=== PATIENT | male | born 1940 | race Caucasian/White ===

== ENCOUNTER 2018-04-04 08:26 | Day surgery (SDC) | payer MEDICARE ==
[~2018-04-04 08:26] MED LIST: ACET325 PO; ASPI81CH PO; CIPR500 PO; CIPRO500 MG PO; HYDR1TAB94 PO; IRON TABLET; IRON150C PO; LEVFLO500 PO; METO25 PO; METO25ER PO; MIRT30 PO; MORP20L PO; MULTI VITAMIN1 EACH; NAPR220; NITR.4SL SL; NITR.8TP TD; ONDA4ODT MM; Omeprazole20 M1 PO; Protonix40 MG PO; TAMS.4ER PO
[2018-04-04] MEDS ORDERED: ISOMON20 PO (13:57)
== END 2018-04-04 17:24 | disposition home or self-care (01) ==
LOC: ATC 08:26
DX: C18.9 Malignant neoplasm of colon, unspecified (principal); D64.9 Anemia, unspecified; I25.2 Old myocardial infarction; I10 Essential (primary) hypertension
CPT/HCPCS: 36415; 36430; 86850; 86900; 86901; 86923; J7030; P9016